=== PATIENT | male | born 1935 | race Caucasian/White ===

== ENCOUNTER 2021-04-19 22:35 | Inpatient (IN) | payer OTHER, MEDICARE ==
[2021-04-20] MEDS ORDERED: HumaLOG 300 UNITS/3 ML VIAL SC PRN (01:30)
[2021-04-20 01:31] VITALS: BMI 28.8
[2021-04-20] MEDS ORDERED: Dextrose 5% in Water 1,000 ML IV PRN (01:37)
[2021-04-20] MEDS ORDERED: hydrALAZINE 20 MG/ML VIAL SLOW IVP PRN (01:37)
[2021-04-20] MEDS ORDERED: Ondansetron PF 4 MG/2 ML Vial IVP PRN (01:37)
[2021-04-20] MEDS ORDERED: traMADol HCl 50 MG TAB PO PRN ×2 (01:37)
[2021-04-20] MEDS ORDERED: Dextrose 50% Abboject 50 ML SYRINGE SLOW IVP PRN (01:37)
[2021-04-20] MEDS ORDERED: Ondansetron ODT 4 MG TAB PO PRN (01:37)
[2021-04-20] MEDS ORDERED: Cyclobenzaprine 10 MG TAB PO PRN (01:37)
[2021-04-20] MEDS: Sodium Chloride 0.9% 1,000 ML IV SCH ×2 (02:06→08:07)
[2021-04-20] MEDS: Acetaminophen 325 MG TAB PO SCH ×4 (02:07→21:25)
[2021-04-20] MEDS: Morphine 4 MG/ML VIAL SLOW IVP PRN ×2 (02:07→06:05)
[2021-04-20] MEDS: Ibuprofen 200 MG TAB PO SCH ×3 (02:07→14:56)
[2021-04-20 05:01] LABS: SARS-CoV-2 NAA Rapid Test Not Detected (NotDetected)
[2021-04-20] MEDS: Amiodarone 200 MG TAB PO SCH ×2 (06:05→21:27)
[2021-04-20] MEDS ORDERED: CEFAZOLIN 2 GM in Premix Bag 1 BAG IVPB SCH (07:15)
[2021-04-20 07:26] LABS: #Eosinphils 0.1 thou/uL (0.0-0.7); #Lymphocytes 1.9 thou/uL (1.20-3.40); #Monocytes 1.7 thou/uL (0.11-0.59); #Neutrophils 7.9 thou/uL (1.40-6.50); %Basophils 0.3 % (0.0-1.0); %Eosinophils 0.8 % (0.0-10.0); %Lymphocytes 16.3 % (21.0-51.0); %Monocytes 14.5 % (0.0-10.0); %Neutrophils 68.2 % (42.0-75.0); Hemoglobin 12.9 g/dL (14.0-18.0); Mean Corpuscular Hemoglobin 34.4 pg (27.0-31.0); Mean Platelet Volume 7.8 fL (7.4-10.4); Platelet Count 246 thou/uL (130-400); RBC Distribution Width 12.7 % (11.5-14.5); Red Blood Cell (RBC) Count 3.74 mill/uL (4.70-6.10); White Blood Cell (WBC) Count 11.6 thou/uL (4.8-10.8)
[2021-04-20 07:46] LABS: Anion Gap 14 mmol/L (10-20); BUN (Urea Nitrogen) 22 mg/dL (8.4-25.7); Calc. Creatinine Clearance 40 mL/min (70-130); Calcium 8.8 mg/dL (7.8-10.44); Carbon Dioxide 27 mmol/L (23-31); Chloride 104 mmol/L (98-107); Glucose 127 mg/dL (83-110); Magnesium 2.1 mg/dL (1.6-2.6); Potassium 4.3 mmol/L (3.5-5.1); Sodium 141 mmol/L (136-145)
[2021-04-20] MEDS: Furosemide 40 MG TAB PO SCH ×2 (08:07→21:26)
[2021-04-20] MEDS: Allopurinol 300 MG TAB PO SCH (08:07)
[2021-04-20] MEDS ORDERED: Famotidine 20 MG TAB PO SCH (09:30)
[2021-04-20] MEDS ORDERED: Famotidine/PF 20 mg/2ml Vial ONE (13:09)
[2021-04-20] MEDS ORDERED: Fentanyl 100 MCG/2 ML VIAL ONE (13:09)
[2021-04-20] MEDS ORDERED: Glycopyrrolate 0.2 MG/ML 5 ML SYRINGE ONE (13:42)
[2021-04-20] MEDS ORDERED: Lidocaine 1% PF 5 ML VIAL ONE (13:42)
[2021-04-20] MEDS ORDERED: Rocuronium Bromide 10 MG/ML (10ML VIAL) ONE (13:42)
[2021-04-20] MEDS ORDERED: ePHEDrine 50 MG/ML VIAL ONE (13:42)
[2021-04-20] MEDS ORDERED: PROPOFOL 200 MG/20 ML VIAL ONE (13:42)
[2021-04-20] MEDS ORDERED: Metoclopramide HCl 10 MG/2 ML VIAL ONE (13:42)
[2021-04-20] MEDS ORDERED: ePHEDrine Sulfate 50 MG/10 ML VIAL ONE (14:32)
[2021-04-20] MEDS ORDERED: Promethazine HCl 25 MG/ML VIAL IVPB PRN (14:49)
[2021-04-20] MEDS ORDERED: Ondansetron HCl/PF 4 MG/2 ML Vial IVP PRN (14:49)
[2021-04-20] MEDS ORDERED: Promethazine HCl 25 MG/ML VIAL IM PRN (14:49)
[2021-04-20] MEDS: Atorvastatin Calcium 10 MG TAB PO SCH (21:27)
[2021-04-20] MEDS: Melatonin 3 MG TAB PO SCH (21:31)
[2021-04-20] MEDS: Senokot S 8.6-50 MG TAB PO SCH (21:32)
[2021-04-20] MEDS: ceFAZolin Sodium/D5W 2 GM in Premix Bag 1 BAG IVPB SCH (21:33)
[2021-04-21] MEDS: Ibuprofen 200 MG TAB PO SCH ×4 (01:43→16:59)
[2021-04-21] MEDS: Acetaminophen 325 MG TAB PO SCH ×5 (01:43→21:13)
[2021-04-21] MEDS: ceFAZolin Sodium/D5W 2 GM in Premix Bag 1 BAG IVPB SCH ×2 (05:39→13:18)
[2021-04-21] MEDS: HumaLOG 300 UNITS/3 ML VIAL SC PRN (06:11)
[2021-04-21] MEDS: Polyethylene Glycol 3350 17 GM Packet PO SCH (08:16)
[2021-04-21] MEDS: Amiodarone 200 MG TAB PO SCH ×2 (08:18→22:29)
[2021-04-21] MEDS: Senokot S 8.6-50 MG TAB PO SCH ×2 (08:18→21:12)
[2021-04-21] MEDS: Allopurinol 300 MG TAB PO SCH (08:18)
[2021-04-21] MEDS: Furosemide 40 MG TAB PO SCH (08:19)
[2021-04-21] MEDS ORDERED: Famotidine 20 MG TAB PO SCH (09:00)
[2021-04-21 09:24] LABS: Anion Gap 17 mmol/L (10-20); BUN (Urea Nitrogen) 25 mg/dL (8.4-25.7); Calc. Creatinine Clearance 37 mL/min (70-130); Calcium 8.9 mg/dL (7.8-10.44); Carbon Dioxide 23 mmol/L (23-31); Chloride 105 mmol/L (98-107); Glucose 211 mg/dL (83-110); Phosphorus 3.5 mg/dL (2.3-4.7); Potassium 4.1 mmol/L (3.5-5.1); Sodium 141 mmol/L (136-145)
[2021-04-21 11:36] LABS: #Monocytes 1.3 thou/uL (0.11-0.59); #Neutrophils 17.1 thou/uL (1.40-6.50); %Basophils 0.1 % (0.0-1.0); %Eosinophils 0.1 % (0.0-10.0); %Lymphocytes 5.1 % (21.0-51.0); %Monocytes 6.6 % (0.0-10.0); %Neutrophils 88.2 % (42.0-75.0); Hemoglobin 12.3 g/dL (14.0-18.0); Mean Corpuscular HGB CONC 32.5 g/dL (32.0-36.0); Platelet Count 265 thou/uL (130-400); RBC Distribution Width 12.5 % (11.5-14.5); Red Blood Cell (RBC) Count 3.61 mill/uL (4.70-6.10); White Blood Cell (WBC) Count 19.4 thou/uL (4.8-10.8)
[2021-04-21] MEDS: Heparin 5,000 UNITS/ML VIAL SC SCH ×2 (16:59→21:15)
[2021-04-21] MEDS: Melatonin 3 MG TAB PO SCH (21:14)
[2021-04-21] MEDS: Atorvastatin Calcium 10 MG TAB PO SCH (21:14)
[2021-04-22] MEDS: Acetaminophen 325 MG TAB PO SCH ×5 (01:21→20:28)
[2021-04-22] MEDS: Ibuprofen 200 MG TAB PO SCH (01:21)
[2021-04-22 07:48] LABS: #Eosinphils 0.3 thou/uL (0.0-0.7); #Lymphocytes 1.8 thou/uL (1.20-3.40); #Monocytes 1.7 thou/uL (0.11-0.59); #Neutrophils 10.6 thou/uL (1.40-6.50); %Basophils 0.2 % (0.0-1.0); %Eosinophils 1.9 % (0.0-10.0); %Lymphocytes 12.4 % (21.0-51.0); %Monocytes 11.6 % (0.0-10.0); Hemoglobin 10.7 g/dL (14.0-18.0); Mean Corpuscular HGB CONC 32.4 g/dL (32.0-36.0); Mean Corpuscular Hemoglobin 33.7 pg (27.0-31.0); Mean Platelet Volume 8.1 fL (7.4-10.4); Platelet Count 233 thou/uL (130-400); RBC Distribution Width 12.5 % (11.5-14.5); Red Blood Cell (RBC) Count 3.18 mill/uL (4.70-6.10); White Blood Cell (WBC) Count 14.4 thou/uL (4.8-10.8)
[2021-04-22] MEDS: Allopurinol 300 MG TAB PO SCH (08:11)
[2021-04-22 08:12] LABS: Anion Gap 13 mmol/L (10-20); BUN (Urea Nitrogen) 38 mg/dL (8.4-25.7); Calc. Creatinine Clearance 28 mL/min (70-130); Calcium 8.7 mg/dL (7.8-10.44); Carbon Dioxide 26 mmol/L (23-31); Chloride 105 mmol/L (98-107); Glucose 121 mg/dL (83-110); Magnesium 2.1 mg/dL (1.6-2.6); Phosphorus 3.1 mg/dL (2.3-4.7); Potassium 3.4 mmol/L (3.5-5.1); Sodium 141 mmol/L (136-145)
[2021-04-22] MEDS: Senokot S 8.6-50 MG TAB PO SCH ×2 (08:12→20:27)
[2021-04-22] MEDS: Amiodarone 200 MG TAB PO SCH ×2 (08:12→20:28)
[2021-04-22] MEDS: Heparin 5,000 UNITS/ML VIAL SC SCH ×3 (08:13→20:29)
[2021-04-22] MEDS: Polyethylene Glycol 3350 17 GM Packet PO SCH (08:14)
[2021-04-22] MEDS ORDERED: Potassium Chloride 20 MEQ TAB PO SCH (09:15)
[2021-04-22] MEDS ORDERED: Lactated Ringer's 1,000 ML IV SCH (09:15)
[2021-04-22] MEDS ORDERED: traMADol HCl 50 MG TAB PO PRN (10:41)
[2021-04-22] MEDS ORDERED: traMADol HCl 50 MG TAB PO SCH (12:00)
[2021-04-22] MEDS: traMADol HCl 50 MG TAB PO SCH (20:27)
[2021-04-22] MEDS: Melatonin 3 MG TAB PO SCH (20:28)
[2021-04-22] MEDS: Atorvastatin Calcium 10 MG TAB PO SCH (20:28)
[2021-04-23] MEDS: Acetaminophen 325 MG TAB PO SCH ×4 (01:27→21:06)
[2021-04-23 06:03] LABS: #Eosinphils 0.4 thou/uL (0.0-0.7); #Lymphocytes 1.9 thou/uL (1.20-3.40); #Monocytes 1.2 thou/uL (0.11-0.59); #Neutrophils 6.7 thou/uL (1.40-6.50); %Basophils 0.4 % (0.0-1.0); %Eosinophils 4.2 % (0.0-10.0); %Lymphocytes 18.5 % (21.0-51.0); %Monocytes 11.9 % (0.0-10.0); Hemoglobin 10.3 g/dL (14.0-18.0); Mean Corpuscular HGB CONC 33.6 g/dL (32.0-36.0); Mean Corpuscular Hemoglobin 35.6 pg (27.0-31.0); Mean Platelet Volume 8.1 fL (7.4-10.4); Platelet Count 225 thou/uL (130-400); RBC Distribution Width 12.7 % (11.5-14.5); Red Blood Cell (RBC) Count 2.89 mill/uL (4.70-6.10); White Blood Cell (WBC) Count 10.3 thou/uL (4.8-10.8)
[2021-04-23 06:23] LABS: Anion Gap 12 mmol/L (10-20); BUN (Urea Nitrogen) 50 mg/dL (8.4-25.7); Calc. Creatinine Clearance 28 mL/min (70-130); Calcium 8.5 mg/dL (7.8-10.44); Carbon Dioxide 27 mmol/L (23-31); Chloride 105 mmol/L (98-107); Glucose 81 mg/dL (83-110); Potassium 3.7 mmol/L (3.5-5.1); Sodium 140 mmol/L (136-145)
[2021-04-23] MEDS ORDERED: FLU VACC QS2021-22(65YR UP)/PF 240 MCG/0.7 ML SYRINGE IM ONE (09:00)
[2021-04-23] MEDS: Polyethylene Glycol 3350 17 GM Packet PO SCH (09:16)
[2021-04-23] MEDS: Tamsulosin HCl 0.4 MG CAP PO SCH (09:16)
[2021-04-23] MEDS: Heparin 5,000 UNITS/ML VIAL SC SCH ×3 (09:22→21:05)
[2021-04-23] MEDS: Senokot S 8.6-50 MG TAB PO SCH ×2 (10:06→21:06)
[2021-04-23] MEDS: Bisacodyl 10 MG SUPP PR SCH (10:06)
[2021-04-23] MEDS: Allopurinol 300 MG TAB PO SCH (10:06)
[2021-04-23] MEDS: traMADol HCl 50 MG TAB PO SCH ×2 (10:07→21:05)
[2021-04-23] MEDS: Amiodarone 200 MG TAB PO SCH ×2 (10:12→21:05)
[2021-04-23] MEDS: HumaLOG 300 UNITS/3 ML VIAL SC PRN (18:57)
[2021-04-23 20:01] LABS: Bacteria/HPF 4+ HPF (None Seen); Bilirubin Negative (Negative); Blood, Urine 2+ (Negative); Glucose, Urine (Dipstick) Normal (Negative); Ketone, Urine Negative (Negative); Leukocyte 500 Leu/uL (Negative); Nitrite Negative (Negative); Protein, Urine (Dipstick) 100 mg/dL (Neg-Trace); RBC/HPF 21-50 HPF (0-3); Specific Gravity, Urine 1.015 (1.002-1.036); Squamous Epithelial None Seen HPF (0-3); Urobilinogen Normal mg/dL (Less than 2); WBC/HPF Greater than 50 HPF (0-3); pH, Urine 5.5 (5.0-9.0)
[2021-04-23 20:02] LABS: Clarity Turbid (Clear)
[2021-04-23] MEDS: Atorvastatin Calcium 10 MG TAB PO SCH (21:05)
[2021-04-23] MEDS: Melatonin 3 MG TAB PO SCH (21:05)
[2021-04-24] MEDS: Acetaminophen 325 MG TAB PO SCH ×5 (02:16→20:51)
[2021-04-24 05:53] LABS: #Basophils 0.1 thou/uL (0.0-0.2); #Eosinphils 0.3 thou/uL (0.0-0.7); #Lymphocytes 1.6 thou/uL (1.20-3.40); #Monocytes 1.1 thou/uL (0.11-0.59); %Basophils 1.3 % (0.0-1.0); %Eosinophils 3.2 % (0.0-10.0); %Lymphocytes 17.4 % (21.0-51.0); %Monocytes 11.9 % (0.0-10.0); %Neutrophils 66.2 % (42.0-75.0); Hemoglobin 10.3 g/dL (14.0-18.0); Mean Corpuscular HGB CONC 32.8 g/dL (32.0-36.0); Mean Corpuscular Hemoglobin 34.6 pg (27.0-31.0); Mean Platelet Volume 8.2 fL (7.4-10.4); Platelet Count 236 thou/uL (130-400); RBC Distribution Width 12.6 % (11.5-14.5); Red Blood Cell (RBC) Count 2.99 mill/uL (4.70-6.10); White Blood Cell (WBC) Count 9.1 thou/uL (4.8-10.8)
[2021-04-24 06:21] LABS: Chloride 107 mmol/L (98-107); Potassium 3.9 mmol/L (3.5-5.1); Sodium 139 mmol/L (136-145)
[2021-04-24 06:26] LABS: Calcium 8.2 mg/dL (7.8-10.44); Glucose 72 mg/dL (83-110)
[2021-04-24 06:27] LABS: Carbon Dioxide 18 mmol/L (23-31)
[2021-04-24 06:29] LABS: Calc. Creatinine Clearance 32 mL/min (70-130); Phosphorus 2.7 mg/dL (2.3-4.7)
[2021-04-24 06:30] LABS: BUN (Urea Nitrogen) 49 mg/dL (8.4-25.7)
[2021-04-24 07:03] LABS: Anion Gap 18 mmol/L (10-20)
[2021-04-24] MEDS: Bisacodyl 10 MG SUPP PR SCH (08:12)
[2021-04-24] MEDS: Polyethylene Glycol 3350 17 GM Packet PO SCH (08:12)
[2021-04-24] MEDS: Tamsulosin HCl 0.4 MG CAP PO SCH (08:12)
[2021-04-24] MEDS: Senokot S 8.6-50 MG TAB PO SCH ×2 (08:12→20:54)
[2021-04-24] MEDS: Amiodarone 200 MG TAB PO SCH ×2 (08:13→20:52)
[2021-04-24] MEDS: traMADol HCl 50 MG TAB PO SCH ×2 (08:15→20:53)
[2021-04-24] MEDS: Allopurinol 300 MG TAB PO SCH (08:16)
[2021-04-24] MEDS: Heparin 5,000 UNITS/ML VIAL SC SCH ×3 (08:16→20:52)
[2021-04-24] MEDS ORDERED: Ciprofloxacin 500 MG TAB PO SCH (11:15)
[2021-04-24] MEDS ORDERED: PHOS-NAK 1 PKT PACK PO SCH (11:15)
[2021-04-24] MEDS: Ciprofloxacin 500 MG TAB PO SCH (20:53)
[2021-04-24] MEDS: Melatonin 3 MG TAB PO SCH (20:53)
[2021-04-24] MEDS: Atorvastatin Calcium 10 MG TAB PO SCH (20:53)
[2021-04-25] MEDS: Acetaminophen 325 MG TAB PO SCH ×4 (02:03→22:45)
[2021-04-25 05:01] LABS: #Eosinphils 0.6 thou/uL (0.0-0.7); #Lymphocytes 1.9 thou/uL (1.20-3.40); #Monocytes 1.3 thou/uL (0.11-0.59); #Neutrophils 6.3 thou/uL (1.40-6.50); %Basophils 0.2 % (0.0-1.0); %Eosinophils 6.1 % (0.0-10.0); %Lymphocytes 18.4 % (21.0-51.0); %Monocytes 12.6 % (0.0-10.0); %Neutrophils 62.8 % (42.0-75.0); Hemoglobin 9.6 g/dL (14.0-18.0); Mean Corpuscular HGB CONC 33.2 g/dL (32.0-36.0); Mean Corpuscular Hemoglobin 34.8 pg (27.0-31.0); Mean Platelet Volume 8.1 fL (7.4-10.4); Platelet Count 230 thou/uL (130-400); RBC Distribution Width 12.5 % (11.5-14.5); Red Blood Cell (RBC) Count 2.77 mill/uL (4.70-6.10); White Blood Cell (WBC) Count 10.1 thou/uL (4.8-10.8)
[2021-04-25 05:22] LABS: Anion Gap 13 mmol/L (10-20); BUN (Urea Nitrogen) 49 mg/dL (8.4-25.7); Calc. Creatinine Clearance 36 mL/min (70-130); Calcium 8.9 mg/dL (7.8-10.44); Carbon Dioxide 27 mmol/L (23-31); Chloride 105 mmol/L (98-107); Glucose 106 mg/dL (83-110); Magnesium 2.1 mg/dL (1.6-2.6); Phosphorus 2.8 mg/dL (2.3-4.7); Potassium 3.7 mmol/L (3.5-5.1); Sodium 141 mmol/L (136-145)
[2021-04-25] MEDS: Ciprofloxacin 500 MG TAB PO SCH ×2 (05:44→20:01)
[2021-04-25] MEDS: Bisacodyl 10 MG SUPP PR SCH (08:17)
[2021-04-25] MEDS: Tamsulosin HCl 0.4 MG CAP PO SCH (08:19)
[2021-04-25] MEDS: Senokot S 8.6-50 MG TAB PO SCH ×2 (08:19→20:00)
[2021-04-25] MEDS: Allopurinol 300 MG TAB PO SCH (08:19)
[2021-04-25] MEDS: Amiodarone 200 MG TAB PO SCH ×2 (08:20→20:01)
[2021-04-25] MEDS: Heparin 5,000 UNITS/ML VIAL SC SCH ×3 (08:21→20:02)
[2021-04-25] MEDS: Polyethylene Glycol 3350 17 GM Packet PO SCH (08:22)
[2021-04-25] MEDS: traMADol HCl 50 MG TAB PO SCH ×2 (08:22→20:00)
[2021-04-25] MEDS ORDERED: Potassium Phosphate 15 MMOL in Sodium Chloride 0.9% 250 ML 250 ML IVPB SCH (12:00)
[2021-04-25] MEDS: HumaLOG 300 UNITS/3 ML VIAL SC PRN ×2 (13:12→22:13)
[2021-04-25] MEDS: Atorvastatin Calcium 10 MG TAB PO SCH (20:01)
[2021-04-25] MEDS: Melatonin 3 MG TAB PO SCH (20:01)
[2021-04-26] MEDS: Acetaminophen 325 MG TAB PO SCH ×3 (02:07→14:39)
[2021-04-26 04:49] LABS: #Eosinphils 0.6 thou/uL (0.0-0.7); #Lymphocytes 1.5 thou/uL (1.20-3.40); #Monocytes 1.2 thou/uL (0.11-0.59); #Neutrophils 5.7 thou/uL (1.40-6.50); %Basophils 0.5 % (0.0-1.0); %Eosinophils 6.8 % (0.0-10.0); %Lymphocytes 16.5 % (21.0-51.0); %Monocytes 13.5 % (0.0-10.0); %Neutrophils 62.7 % (42.0-75.0); Hemoglobin 9.9 g/dL (14.0-18.0); Mean Corpuscular HGB CONC 33.7 g/dL (32.0-36.0); Mean Corpuscular Hemoglobin 35.4 pg (27.0-31.0); Mean Platelet Volume 8.3 fL (7.4-10.4); Platelet Count 216 thou/uL (130-400); RBC Distribution Width 12.7 % (11.5-14.5); White Blood Cell (WBC) Count 9.1 thou/uL (4.8-10.8)
[2021-04-26 05:17] LABS: Anion Gap 13 mmol/L (10-20); BUN (Urea Nitrogen) 46 mg/dL (8.4-25.7); Calc. Creatinine Clearance 42 mL/min (70-130); Calcium 8.8 mg/dL (7.8-10.44); Carbon Dioxide 24 mmol/L (23-31); Chloride 106 mmol/L (98-107); Glucose 141 mg/dL (83-110); Magnesium 2.1 mg/dL (1.6-2.6); Phosphorus 2.7 mg/dL (2.3-4.7); Potassium 4.2 mmol/L (3.5-5.1); Sodium 139 mmol/L (136-145)
[2021-04-26] MEDS: Ciprofloxacin 500 MG TAB PO SCH (06:22)
[2021-04-26] MEDS: Bisacodyl 10 MG SUPP PR SCH (09:49)
[2021-04-26] MEDS: Polyethylene Glycol 3350 17 GM Packet PO SCH (09:49)
[2021-04-26] MEDS: Senokot S 8.6-50 MG TAB PO SCH (09:50)
[2021-04-26] MEDS: traMADol HCl 50 MG TAB PO SCH (09:50)
[2021-04-26] MEDS: Tamsulosin HCl 0.4 MG CAP PO SCH (10:01)
[2021-04-26] MEDS: Allopurinol 300 MG TAB PO SCH (10:02)
[2021-04-26] MEDS: Amiodarone 200 MG TAB PO SCH (10:02)
[2021-04-26] MEDS: Heparin 5,000 UNITS/ML VIAL SC SCH ×2 (10:03→14:39)
[2021-04-26] MEDS: HumaLOG 300 UNITS/3 ML VIAL SC PRN (16:29)
[2021-04-26 17:01] VITALS: BP 130/76; TEMP 97.8
== END 2021-04-26 17:00 | DRG 481 ==
LOC: T4-A 23:50 → INTOOBSV 23:50 → OBSVTOIN 04-20 10:21 → SURG A 04-22 16:17
PROVIDERS: ADMIT Surgery; ATTEND Surgery
PROC: 0QS604Z Reposition Right Upper Femur with Internal Fixation Device, Open Approach (ICD-10-PCS; principal; 2021-04-20)
DX: S72.141A Displaced intertrochanteric fracture of right femur, initial encounter for closed fracture (principal); N17.9 Acute kidney failure, unspecified; D62 Acute posthemorrhagic anemia; N39.0 Urinary tract infection, site not specified; I10 Essential (primary) hypertension; M10.9 Gout, unspecified; E11.9 Type 2 diabetes mellitus without complications; I48.91 Unspecified atrial fibrillation; I25.10 Atherosclerotic heart disease of native coronary artery without angina pectoris; F32.A Depression, unspecified; W00.0XXA Fall on same level due to ice and snow, initial encounter; Z20.822 Contact with and (suspected) exposure to COVID-19; I95.9 Hypotension, unspecified; K59.00 Constipation, unspecified; R33.9 Retention of urine, unspecified; Z79.899 Other long term (current) drug therapy; Z90.79 Acquired absence of other genital organ(s); Z87.891 Personal history of nicotine dependence
CPT/HCPCS: 36415; 36416; 76000; 80048; 81001; 83735; 84100; 85025; 87077; 87086; 87186; 90471; 90662; 93005; 93010; 96374; 96375; 96376; C1713; G0008; G0378; J1644; J1815; J2270; J2704; J2765; J3010; J3490; J7050; J7120; S0028; U0002